=== PATIENT | male | born 1965 | race Caucasian/White ===

== ENCOUNTER 2019-01-20 01:16 | Inpatient (IN) | payer BC ==
[2019-01-20] VITALS (25 sets, daily range): BP systolic 99–134; BP diastolic 57–87
[~2019-01-20] VITALS: Ht 180.3 cm; Wt 101.6 kg
--- NOTE | 2019-01-20 01:21 | NUR ---
PT BIB RA C/O MIDSTERNAL PRESSURING CHEST PAIN 6/10 THAT DOES NOT RADIATE. PT RECEIVE 3 NITRO SPRAY AND 162MG ASPIRIN PRIOR TO ARRIVAL. AAOX4. NO SOB. BREATHING EVENLY AND UNLABORED. CONNECTED TO MONITOR.
[2019-01-20] MEDS ORDERED: MORPHINE SULFATE INJ 2 MG/ML DISP.SYRIN IV ONE (01:30)
[2019-01-20] MEDS ORDERED: ONDANSETRON HCL/PF 4 MG/2 ML VIAL IVP ONE (01:30)
--- NOTE | 2019-01-20 01:37 | NUR ---
XRAY AT BEDSIDE
[2019-01-20] MEDS ORDERED: ONDANSETRON HCL/PF 4 MG/2 ML VIAL ONE (01:39)
[2019-01-20] MEDS ORDERED: MORPHINE SULFATE INJ 4 MG/ML DISP.SYRIN ONE (01:39)
[2019-01-20 01:58] LABS: BASOPHILS % (AUTO) 0.3 % (0.0-2.0); EOSINOPHILS % (AUTO) 2.3 % (0.0-6.0); HEMATOCRIT 51 % (39-51); HEMOGLOBIN 17.2 g/dL (13.5-17.5); LYMPHOCYTES % (AUTO) 19.7 % (20.0-44.0); MEAN CORPUSCULAR HGB CONC 34 g/dl (31.0-36.0); MEAN CORPUSCULAR VOLUME 93 fL (80-96); MONOCYTES % (AUTO) 10.3 % (2.0-12.0); NEUTROPHILS # (AUTO) 6.8 /CMM (1.8-8.9); NEUTROPHILS % (AUTO) 67.4 % (43.0-81.0); PLATELET COUNT (AUTO) 262 /CMM (150-450); RED BLOOD CELL COUNT(AUTO) 5.49 MIL/uL (4.5-6.0); WHITE BLOOD COUNT (AUTO) 10.1 K/uL (4.3-11.0)
[2019-01-20 02:08] LABS: CALCIUM, SERUM 9.1 mg/dL (8.5-10.1); CREATININE 0.9 mg/dL (0.6-1.3); POTASSIUM 4.2 mmol/L (3.5-5.1)
[2019-01-20 02:20] LABS: ALBUMIN 3.9 g/dL (3.4-5.0); BILIRUBIN,DIRECT 0.1 mg/dL (0.0-0.2); BILIRUBIN,TOTAL 0.3 mg/dL (0.2-1.0); TOTAL PROTEIN, SERUM 7.1 g/dL (6.4-8.2)
--- NOTE | 2019-01-20 05:11 | NUR ---
BED ASSIGNMENT 315-1
--- NOTE | 2019-01-20 05:23 | NUR ---
REPORT GIVEN TO JAMARI NIELSEN.
--- NOTE | 2019-01-20 05:24 | NUR ---
wood fence erector notes Received report from GIA Ruiz ER nurse.
--- NOTE | 2019-01-20 05:54 | NUR ---
DR. SANTIAGO ON THE PHONE WITH REMOTE SENSING ANALYST STEEL ANALYST, DR. JACOBSEN
[2019-01-20] MEDS ORDERED: Z GUARD REMEDY 2 OZ OINT TP PRN (06:30)
[2019-01-20] MEDS ORDERED: ONDANSETRON HCL/PF 4 MG/2 ML VIAL IVP PRN (06:30)
[2019-01-20] MEDS ORDERED: ACETAMINOPHEN 325 MG TABLET PO PRN (06:30)
[2019-01-20] MEDS ORDERED: HYDROCODONE/APAP 5/325MG 1 EACH TABLET PO PRN (06:30)
[2019-01-20] MEDS ORDERED: ZOLPIDEM TARTRATE 5 MG TABLET PO PRN (06:30)
[2019-01-20] MEDS ORDERED: MAGNESIUM HYDROXIDE 30 ML UDC PO PRN (06:30)
[2019-01-20] MEDS ORDERED: MAG HYDROX/AL HYDROX/SIMETH 30 ML UDC PO PRN (06:30)
--- NOTE | 2019-01-20 07:00 | NUR ---
STEAM SHOVEL OILER NOTES RECEIVED PATIENT IN BED ALERT AND AWAKE ORIENTED X4. DENIES ANY C/O CHEST PAIN AT THIS TIME. ORIENTED PATIENT TO ROOM, UNIT AND CALL LIGHT. AMBULATORY WITH STEADY GAIT. ON TELE MONITORING SR: 81. BED IN LOWEST POSITION, LOCKED. CALL LIGHT WITHIN EACH. RESTING COMFORTABLY IN BED AT THIS TIME.
--- NOTE | 2019-01-20 07:00 | NUR ---
well loggertechnology architect notes Received Pt at 0640 from ER nurse GIA Ruiz. Pt arrived at the unit with a gurney and ACLS protocol. Pt is 53 YO M with a diagnose of chest pain by Dr. Miller. Pt is alert and oriented x4. Respiration is normal in 2 L NC. No SOB. No nausea or vomiting. No S/S of distress noted. IV sites at LAC # 18 is clean, intact,patent and flush without resistance. VS is stable. Tele monitor showed sinus rhytm at 67. Skin assessment is done and performed. Pt's skin is intact. Pt is able to ambulate with assist. Pt's belonging was checked by GINGER Campuzano. [place] and educate Pt of using the call light button and the room. Admission orders received. Safety precautions is maintained. Bed at low position, brakes locked, side rails upX3 and call light is within reach. Will endorse to morning nurse for HANNAH.
--- NOTE | 2019-01-20 07:45 | NUR ---
REPATCHER NOTES SEEN AND EXAMINED BY Herson OLIVA MD EXPLAINED LEFT HEART CATHETERIZATION WITH CONSCIOUS SEDATION AND OBTAINED CONSENT.
[2019-01-20] MEDS ORDERED: HEPARIN INFUSION/D5W 500 ML IV PRN (08:00)
[2019-01-20] MEDS ORDERED: TEST200V3 IM (08:19)
[2019-01-20] MEDS ORDERED: ATOR40TA PO (08:19)
--- NOTE | 2019-01-20 08:20 | NUR ---
HAND TOOL FILER NOTES DR. PATEL WITH ORDER FOR HEPARIN PER PROTOCOL. CARRIED OUT
--- NOTE | 2019-01-20 08:25 | NUR ---
EMAIL DEVELOPER NOTES PER Joceline PRATT, TO STOP HEPARIN AT 11AM.
[2019-01-20] MEDS: METOPROLOL TARTRATE 25 MG TABLET PO SCH ×2 (09:00→21:00)
--- NOTE | 2019-01-20 09:00 | NUR ---
EXTENSION ASSOCIATE NOTES HEPARIN ORDER VERIFIED WITH DR. PATEL AND AWARE OF TROPONIN LEVEL. PATIENT REMAINS NPO
--- NOTE | 2019-01-20 09:23 | NUR ---
INSPECTOR WATCH TRAIN NOTES HEPARIN GIVEN VIA IV 5,000 UNIT WITHOUT ASE OBSERVED. NO S/S OF BLEEDING. PATIENT DENIES ANY C/O PAIN NOR DISCOMFORT. IN NO APPARENT DISTRESS.
--- NOTE | 2019-01-20 09:26 | NUR ---
WASTE CHOPPER NOTES HEPARIN INFUSION STARTED AND GIVEN ORDERED 1200UNITS/HR JERRY WELL TO LEFT AC # 18. NO S/S OF BLEEDING OBSERVED. RESTING COMFORTABLY IN BED. CALL LIGHT WITHIN REACH.
[2019-01-20] MEDS ORDERED: HEPARIN SODIUM, PORCINE 5000 UNITS/1 ML VIAL IV ONE ×2 (09:30→10:00)
[2019-01-20] MEDS: ASPIRIN EC 81 MG TABLET.DR PO SCH (10:08)
[2019-01-20] MEDS: ATORVASTATIN 40 MG TABLET PO SCH ×2 (10:08→21:07)
[2019-01-20] MEDS ORDERED: IV NS 0.9% 50 ML IV ONE (10:13)
[2019-01-20] MEDS ORDERED: IV SET PRIMARY PUMP SET 1 EA INFUS.SET MC ONE (10:13)
[2019-01-20] MEDS ORDERED: IV NS 0.9% 1,000 ML ONE (10:13)
[2019-01-20] MEDS ORDERED: LIDOCAINE HCL/PF 1% 30 ML SDV ONE (10:14)
[2019-01-20] MEDS ORDERED: VERAPAMIL HCL IV 5 MG/2 ML VIAL ONE (10:14)
[2019-01-20 10:48] LABS: CHOLESTEROL 76 mg/dL (<200); HDL CHOLESTEROL 28 mg/dL (40-60); LDL 40 mg/dL (0-99); TRIGLYCERIDES 60 mg/dL (30-150)
--- NOTE | 2019-01-20 11:00 | NUR ---
TRAFFIC CIRCUIT ENGINEER NOTES HEPARIN INFUSION STOPPED PER DR. PATEL. APTIENT IN NO APPARENT DISTRESS. ALERT AND ORIENTED X4. NO S/S OF BLEEDING.
[2019-01-20] MEDS ORDERED: IODIXANOL 150 ML IV ONE (11:53)
--- NOTE | 2019-01-20 12:00 | NUR ---
NEWS VIDEOTAPE EDITOR NOTES PATIENT LEFT UNIT IN STABLE CONDITION FOR MATERNAL CHILD NURSE.
[2019-01-20] MEDS ORDERED: NITROGLYCERIN ICAR 1,000 MCG/10 ML VIAL ICAR ONE (12:03)
[2019-01-20] MEDS ORDERED: FENTANYL PF 100MCG/2ML AMPUL ONE (12:36)
[2019-01-20] MEDS ORDERED: MIDAZOLAM HCL 2 MG/2ML VIAL ONE (12:37)
[2019-01-20] MEDS ORDERED: HEPARIN SODIUM, PORCINE 1,000 UNIT/ML VIAL ONE (12:52)
--- NOTE | 2019-01-20 13:52 | NUR ---
RN NOTES RECEIVED PT FROM WHARFMASTER, PT IS A/OX4, ON RA, O2 SAT 98%, NO DISTRESS NOTED, ON TELE SR HR IN 80'S , TR BAND IS ON R WRIST AND ALIGNED WITH GREEN MARKER , BALLOON 12 CC INFLATED, SITE CLEAN, DRY M NO SIGN OF BLEEDING AND HEMATOMA NOTED, PT IS ABLE TO MOVE HIS FINGERS COLLIN ANY NUMBNESS AND TINGLING , STRONG POSITIVE R RADIAL PULSE NOTED ON PALPITATION. CONTINUE TO MONITOR .
[2019-01-20] MEDS ORDERED: IV NS 0.9% 1,000 ML IV PRN (15:00)
--- NOTE | 2019-01-20 15:35 | NUR ---
RN NOTES VSS STABLE, R WIRST SITE CLEAN, DRY , NO COMPLICATION NOTED CONTINUE TO MONITOR .
--- NOTE | 2019-01-20 16:00 | NUR ---
RN NOTES VSS STABLE, PT COLLIN ANY PROBLEM ON R WRIST , COMPRESSION BALLOON DEFLATED EVERY 10-15 MINUETS PER MD ORDER , HEMOSTASIS OBTAINED, TR BAND REMOVED , STERIL DRESSING APPLIED, CONTINUE TO MONITOR.
--- NOTE | 2019-01-20 18:44 | NUR ---
RN NOTES NO DISTRESS NOTED, R WRIST DRESSING CLEAN, DRY , NO COMPLICATION NOTED AT THE SITE , PT AT REST , WILL ENDORSE TO MIME ARTIST NURSE FOR CONTINUITY OF CARE .
--- NOTE | 2019-01-20 19:30 | NUR ---
ACCOUNT PROCESSOR RCD PT S/P HEART CATH; NO BLEEDING NOTED AT TR BAND SITE. PT A/O x4. NSR ON MONITOR. DENIES CHEST PAIN OR SOB. CONTINUE TO MONITOR.
[2019-01-21] VITALS (13 sets, daily range): BP systolic 97–132; BP diastolic 62–80
[2019-01-21 05:03] LABS: BASOPHILS % (AUTO) 0.2 % (0.0-2.0); EOSINOPHILS % (AUTO) 2.4 % (0.0-6.0); HEMATOCRIT 47 % (39-51); HEMOGLOBIN 15.8 g/dL (13.5-17.5); LYMPHOCYTES # (AUTO) 2.1 /CMM (0.8-4.8); MEAN CORPUSCULAR HGB CONC 34 g/dl (31.0-36.0); MEAN CORPUSCULAR VOLUME 92 fL (80-96); MONOCYTES # (AUTO) 0.7 /CMM (0.1-1.30); MONOCYTES % (AUTO) 9.5 % (2.0-12.0); NEUTROPHILS % (AUTO) 57.9 % (43.0-81.0); PLATELET COUNT (AUTO) 262 /CMM (150-450); RED BLOOD CELL COUNT(AUTO) 5.09 MIL/uL (4.5-6.0); WHITE BLOOD COUNT (AUTO) 6.9 K/uL (4.3-11.0)
[2019-01-21 05:20] LABS: CALCIUM, SERUM 8.9 mg/dL (8.5-10.1); MAGNESIUM 2.2 mg/dL (1.8-2.4); PHOSPHORUS 2.7 mg/dL (2.5-4.9); POTASSIUM 4.4 mmol/L (3.5-5.1)
--- NOTE | 2019-01-21 07:00 | NUR ---
RN NOTES RECEIVED PT A/OX4, ON RA , RESPIRATION EVEN AND UNLABORED ,NO DISTRESS NOTED, ON TELE SR , R WRIST DRESSING CLEAN, AND DRY, VOIDING PER URINAL , SR UP x3, CALL LIGHT WITHIN EASY REACH, CONTINUE TO MONITOR .
[2019-01-21] MEDS: ASPIRIN EC 81 MG TABLET.DR PO SCH (08:11)
[2019-01-21] MEDS: METOPROLOL TARTRATE 25 MG TABLET PO SCH (09:00)
[2019-01-21] MEDS ORDERED: ASPI-1152 PO (10:00)
[2019-01-21] MEDS ORDERED: INDO50CA92 PO (10:00)
[2019-01-21] MEDS ORDERED: INDOMETHACIN 25 MG CAPSULE PO SCH (10:30)
--- NOTE | 2019-01-21 12:10 | NUR ---
RN NOTES DR. LOVELACE NOTIFED REGARDING D-DIMER RESULTS. PT CAN GO HOME PER MD ORDER . DISCHARGE INSTRUCTION GIVEN TO PT, VERBALIZES UNDERSTANDING, IV SITE D/JF, PT LEFT THE FLOOR TO MAIN ENTRANCE AMBULATORY ACCOMPANIED BY STAFF MEMBER . PT TAKEN HOME BY BALBINA. Addendum: 01/21/19 at 1223 by AGUSTINA REED RN IN STABLE CONDITION.
== END 2019-01-21 12:10 | disposition home or self-care (01) | DRG 282 ==
LOC: ER 01:16 → TELE 05:15 → ICU 13:19
PROVIDERS: ADMIT Hospitalist; ATTEND Hospitalist
DX: I51.4 Myocarditis, unspecified (principal); I21.A1 Myocardial infarction type 2; E87.5 Hyperkalemia; I25.2 Old myocardial infarction; E78.5 Hyperlipidemia, unspecified; E66.9 Obesity, unspecified; I34.1 Nonrheumatic mitral (valve) prolapse; Z86.79 Personal history of other diseases of the circulatory system
CPT/HCPCS: 36415; 71045-TC; 80048-TC; 80061-TC; 80076-TC; 83735-TC; 83880; 84100-TC; 84484-TC; 85025-TC; 85378-TC; 85730-TC; 87081-TC; 93307-TC; 93452; A4216; C1887; G0378; J1644; J2250; J2270; J2405; J3010; J3490; J7030; Q9967